=== PATIENT | male | born 1960 | race Hispanic/Latino ===

== ENCOUNTER 2022-01-13 11:00 | Emergency (ER) | payer BC ==
--- NOTE | 2022-01-13 12:06 | Emergency Department Report ---
HPI - General Chief Complaint: Dizziness Time Seen by Provider: 01/13/22 11:46 - HPI HPI: Just prior to arrival the patient was at work and he started feeling dizzy as and lightheaded. He sat down and the next thing he knows he was on the ground with an unknown unconscious downtime. He was then set up in the ambulance arrived and brought him to the emergency department. He currently denies any nausea vomiting fever chills chest pain focal weakness headache or any other associated symptoms. The makes it better nor worse. He is currently completely asymptomatic. ED Past Medical Hx - Past Medical History Previous Medical History?: No - Surgical History Past Surgical History?: No - Family History Family history: no significant - Social History Smoking Status: Former Smoker Substance Use Type: Alcohol, Other (He currently vapes) - Medications Home Medications: Home Medications Medication Instructions Recorded Confirmed Last Taken Type No Known Home Medications [No 01/13/22 01/13/22 Unknown History Reported Home Medications] ED Review of Systems ROS: Stated complaint: IRREGULAR HEART /WEAKNESS Other details as noted in HPI Comment: All other systems reviewed and negative Physical Exam - Physical Exam Vital Signs: Vital Signs 01/13/22 01/13/22 01/13/22 11:12 11:15 11:23 Temperature 98.2 F Pulse Rate 69 Respiratory 13 12 Rate Blood Pressure 131/72 O2 Sat by Pulse 99 100 Oximetry 01/13/22 11:52 Temperature Pulse Rate Respiratory Rate Blood Pressure O2 Sat by Pulse 97 Oximetry Physical Exam: Physical Exam: Constitutional: AAOX3. No acute distress. No diaphoresis. HENT: Normocephalic. Pupils equal and reactive. No throat edema or erythema. Neck: No neck rigidity or tenderness. Cardiovascular: Heart sounds: No murmur. Normal rate and regular rhythm. Pulses: Intact distal pulses. Lungs: No wheezing or rales. Chest wall: No tenderness. Abdominal: No distension. No mass/pulsatile mass. No abdominal tenderness, guarding nor rebound. Musculoskeletal: Normal range of motion. No edema, No calf TTP. Skin: Warm and dry. Neurological: Alert and oriented to person, place, and time. Psychiatric: Mood and affect normal. Normal cognition and memory. Normal judgement. ED Course Vital Signs 01/13/22 01/13/22 01/13/22 11:12 11:15 11:23 Temperature 98.2 F Pulse Rate 69 Respiratory 13 12 Rate Blood Pressure 131/72 O2 Sat by Pulse 99 100 Oximetry 01/13/22 11:52 Temperature Pulse Rate Respiratory Rate Blood Pressure O2 Sat by Pulse 97 Oximetry - Reevaluation(s) Reevaluation #1: 01/13/22 12:51 EKG done interpreted at 1227 shows a rate of 67, normal. The rhythm is sinus rhythm, normal. 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 There are some abnormalities of the T waves in the anterolateral leads with T wave inversions. Reevaluation #2: 01/13/22 17:15 The patient remained completely asymptomatic and with completely normal vital signs while in the emergency department. I explained to him that I know why he had his syncopal episode and that his EKG looks abnormal. He has no knowledge of it being abnormal in the past. I offered him admission but he declined saying he feels fine he will come back if any other issues arise. He denies any chest pain shortness of breath or any other issues at this time. I gave him the name of the manager location on-call for follow-up. ED Medical Decision Making - Lab Data Result diagrams: 01/13/22 12:08 01/13/22 15:55 Critical care attestation.: If time is entered above; I have spent that time in minutes in the direct care of this critically ill patient, excluding procedure time. ED Disposition Clinical Impression: Syncope Disposition: 01 HOME / SELF CARE / HOMELESS Is pt being admited?: No Does the pt Need Aspirin: Yes Condition: Stable Instructions: Syncope (ED), Syncope Referrals: PRIMARY CARE, [Primary Care Provider] - 3-5 Days Time of Disposition: 17:20 Print Language: [place]ESE
[2022-01-13 12:38] LABS: Basophils # (Auto) 0.2 K/mm3 (0.0-0.1); Basophils % (Auto) 0.9 % (0.0-1.8); Eosinophils # (Auto) 0.1 K/mm3 (0.0-0.4); Eosinophils % (Auto) 0.5 % (0.0-4.3); Hemoglobin 16.6 gm/dl (11.8-15.2); Lymphocytes # (Auto) 1.9 K/mm3 (1.2-5.4); Lymphocytes % (Auto) 10.6 % (13.4-35.0); Mean Corpuscular HGB Conc 34 % (32-34); Mean Corpuscular Volume 85 fl (84-94); Monocytes % (Auto) 5.7 % (0.0-7.3); Platelet Count 314 K/mm3 (140-440); Red Blood Count 5.78 M/mm3 (3.65-5.03); Red Cell Distribution Width 14.1 % (13.2-15.2)
--- NOTE | 2022-01-13 12:48 | XRay Report ---
CHEST 1 VIEW 01/13/2022 11:52 AM INDICATION / CLINICAL INFORMATION: Chest Pain. COMPARISON: None available. FINDINGS: SUPPORT DEVICES: None. HEART / MEDIASTINUM: No significant abnormality. LUNGS / PLEURA: No significant pulmonary or pleural abnormality. No pneumothorax. ADDITIONAL FINDINGS: No significant additional findings. IMPRESSION: 1. No acute findings. Signer Name: Giancarlo Newberry MD Signed: 01/13/2022 12:44 PM Workstation Name: [id number]
[2022-01-13 16:11] VITALS: BP 123/64
[2022-01-13 16:39] LABS: Alanine Aminotransferase 24 units/L (7-56); Albumin 4.1 g/dL (3.9-5); BUN/Creatinine Ratio 12; Blood Urea Nitrogen 12 mg/dL (9-20); Calcium 9.9 mg/dL (8.4-10.2); Hemolysis Index 28
[2022-01-13 17:13] LABS: Bilirubin,Urine NEG (Negative); Blood,Urine NEG (Negative); Color,Urine Yellow (Yellow); Hyaline Casts,Urine 1 /LPF; Mucus,Urine 1+ /HPF; RBC,Urine < 1.0 /HPF (0.0-6.0); Urobilinogen,Urine < 2.0 mg/dL (<2.0)
--- NOTE | 2022-01-16 19:47 | Electrocardiograph Report ---
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
== END 2022-01-13 17:55 | disposition home or self-care (01) ==
LOC: ED 11:00
DX: R55 Syncope and collapse (principal); Z87.891 Personal history of nicotine dependence; F10.20 Alcohol dependence, uncomplicated
CPT/HCPCS: 36415; 71045; 80053; 81001; 82962; 83880; 84484; 85025; 93005; 99284